=== PATIENT | male | born 1955 | race Two or more races ===

== ENCOUNTER 2021-08-15 16:47 | Inpatient (IN) | payer MEDICAID, OTHER ==
[~2021-08-15] VITALS: Ht 182.9 cm; Wt 76.2 kg
[2021-08-15 17:34] LABS: Eosinophils # (auto) 0 10 ^3/uL (0-0.8); Hematocrit 38.5 % (41.0-53.0); Lymphocytes # (auto) 0.6 10 ^3/uL (0.4-5.4); Mean Corpuscular Hgb Conc. 34.4 g/dL (32.0-36.0); Monocytes # (auto) 0.4 10 ^3/uL (0-1.3); Neutrophils # (auto) 4.2 10 ^3/uL (1.6-8.6); Nucleated Red Blood Cells % 0.1 %; White Blood Cell 5.3 10^3/uL (4.4-10.8)
[2021-08-15 17:35] LABS: Basophils # (auto) 0.1 10 ^3/uL (0-0.2); Eosinophils % (auto) 0.4 % (0.0-7.0); Hemoglobin 13.2 g/dL (13.5-17.5); Lymphocytes % (auto) 11.5 % (10.0-50.0); Mean Corpuscular Volume 101.7 fL (80.0-100.0); Monocytes % (auto) 7.8 % (0.0-12.0); Neutrophils % (auto) 79.3 % (37.0-80.0); Red Blood Cells 3.79 10^6/uL (4.5-5.90); Red Cell Distribution Width 13.5 % (11.8-14.3)
[2021-08-15 17:49] LABS: INR 1.1 (0.9-1.15); Partial Thromboplastin Time 24.8 sec (23.6-33.0)
[2021-08-15 17:52] LABS: Albumin 3.6 g/dL (3.4-5.0); Anion Gap 15 (5-15); Blood Urea Nitrogen 23 mg/dL (7-18); Calcium 8.7 mg/dL (8.5-10.1); Carbon Dioxide 21 mmol/L (21-32); Chloride 98 mmol/L (98-107); Magnesium 2.1 mg/dL (1.6-2.6); Sodium 134 mmol/L (136-145)
[2021-08-15 17:58] LABS: Alanine Aminotransferase 38 U/L (16-61); Alkaline Phosphatase 123 U/L (45-117); Aspartate Aminotransferase 53 U/L (15-37); BUN/Creatinine Ratio 17.8; Bilirubin, Total 0.8 mg/dL (0.2-1.0); GFR African American 72 mL/min; GFR Non-African American 60 mL/min; Total Protein 7.4 g/dL (6.4-8.2)
[2021-08-15] MEDS ORDERED: AMIODARONE HCL 150 MG in D5W 5% 100 ML IV ONE (18:00)
[2021-08-15] MEDS ORDERED: AMIODARONE 450mg/250ml AE 250 ML IV SCH (18:00)
[2021-08-15 18:30] LABS: Potassium 2.8 mmol/L (3.5-5.1)
[2021-08-15 18:31] LABS: Glucose 472 mg/dL (74-106)
[2021-08-15 19:32] LABS: Urine Bacteria FEW /hpf (None Seen); Urine Blood Negative /uL (Negative); Urine Hyaline Cast FEW /lpf (0 - 2); Urine Specific Gravity 1.028 (1.001-1.035); Urine WBC 2 /hpf (0 - 3)
[2021-08-15] MEDS ORDERED: POTASSIUM EFFERVESENT TAB 25 MEQ PO ONE (19:45)
[2021-08-15] MEDS ORDERED: NITROGLYCERIN 0.4 MG SL TAB SL PRN (19:45)
[2021-08-15] MEDS ORDERED: methylPREDNISolone SOD SUCC 125 MG/2 ML VL IV ONE (19:45)
[2021-08-15] MEDS ORDERED: MAGNESIUM SULFATE 1GM/100ML 100 ML IV ONE (19:45)
[2021-08-15] MEDS ORDERED: HYDROcodone-ACET 5/325MG TAB PO PRN (19:45)
[2021-08-15] MEDS ORDERED: MORPHINE SULFATE INJECTION 2 MG/ML SYRG IV PRN ×2 (19:45)
[2021-08-15] MEDS ORDERED: DEXTROSE (50%) 50ML SYRG IV PRN (19:45)
[2021-08-15] MEDS ORDERED: ONDANSETRON HCL 4 MG/2 ML VIAL IV PRN (19:45)
[2021-08-15] MEDS ORDERED: InsuLIN REG 1unit/0.01ml Soln (100units/ml) IV ONE (19:45)
[2021-08-15 20:22] LABS: Alcohol, Urine < 3.0 mg/dL (0-10); Amphetamine Screen, Urine NEGATIVE (NEGATIVE); Barbiturate Scree,Urine NEGATIVE (NEGATIVE); Benzodiazephine Screen, Urine NEGATIVE (NEGATIVE); Cannabinoid Screen, Urine NEGATIVE (NEGATIVE); Cocaine Screen, Urine NEGATIVE (NEGATIVE); Opiate Scree,Urine NEGATIVE (NEGATIVE); Phencyclidine Screen, Urine NEGATIVE (NEGATIVE)
[2021-08-15 20:35] LABS: CRP High Sensitivity 1.22 mg/dL (< 0.3)
[2021-08-15] MEDS ORDERED: InsuLIN REG 1unit/0.01ml Soln (100units/ml) SC SCH (22:00)
[2021-08-15] MEDS: DOCUSATE SOD 100 MG CAP PO SCH (22:38)
[2021-08-15] MEDS: ATORVASTATIN 20 MG TAB PO SCH (22:38)
[2021-08-15] MEDS: ACCU-CHEK COMFORT CURVE STRIP VI SCH (22:38)
[2021-08-15] MEDS: dilTIAZem HCL 60 MG TAB PO SCH (22:38)
[2021-08-16] MEDS: IPRATROPIUM BROM 0.5 MG/2.5ML INH SOL NEB SCH ×4 (00:30→18:43)
[2021-08-16] MEDS: LEVALBUTEROL HCL 1.25 MG/3 ML NEB NEB SCH ×4 (00:30→18:43)
[2021-08-16 03:18] LABS: Basophils # (auto) 0 10 ^3/uL (0-0.2); Eosinophils # (auto) 0 10 ^3/uL (0-0.8); Hemoglobin 13.7 g/dL (13.5-17.5); Monocytes # (auto) 0.2 10 ^3/uL (0-1.3); White Blood Cell 7.5 10^3/uL (4.4-10.8)
[2021-08-16 03:20] LABS: Basophils % (auto) 0.3 % (0.0-2.0); Lymphocytes # (auto) 0.5 10 ^3/uL (0.4-5.4); Lymphocytes % (auto) 7.1 % (10.0-50.0); Mean Corpuscular Hemoglobin 34.6 pg (28.0-32.0); Mean Corpuscular Hgb Conc. 34.2 g/dL (32.0-36.0); Mean Corpuscular Volume 101.1 fL (80.0-100.0); Monocytes % (auto) 2.3 % (0.0-12.0); Neutrophils # (auto) 6.8 10 ^3/uL (1.6-8.6); Neutrophils % (auto) 90.3 % (37.0-80.0); Red Blood Cells 3.95 10^6/uL (4.5-5.90); Red Cell Distribution Width 13.3 % (11.8-14.3)
[2021-08-16 03:36] LABS: INR 1.1 (0.9-1.15); Partial Thromboplastin Time 24.4 sec (23.6-33.0)
[2021-08-16 03:40] LABS: Calcium 8.8 mg/dL (8.5-10.1); Potassium 3.3 mmol/L (3.5-5.1)
[2021-08-16] MEDS: dilTIAZem HCL 60 MG TAB PO SCH ×3 (06:41→23:10)
[2021-08-16] MEDS: InsuLIN REG 1unit/0.01ml Soln (100units/ml) SC SCH ×4 (07:00→17:47)
[2021-08-16] MEDS: ACCU-CHEK COMFORT CURVE STRIP VI SCH ×4 (07:00→17:22)
[2021-08-16] MEDS: ASPirin-EC 81 mg tab PO SCH (09:52)
[2021-08-16] MEDS: LISINOPRIL 10 MG TAB PO SCH (09:52)
[2021-08-16] MEDS: THIAMINE HCL 100 MG TAB PO SCH (09:52)
[2021-08-16] MEDS: DOCUSATE SOD 100 MG CAP PO SCH ×2 (09:52→23:09)
[2021-08-16] MEDS: MULTIPLE VITAMIN TAB PO SCH (09:52)
[2021-08-16 09:58] VITALS: BP 110/64
[2021-08-16] MEDS: AMIODARONE 450mg/250ml AE 250 ML IV SCH (11:45)
[2021-08-16] MEDS ORDERED: methylPREDNISolone SOD SUCC 40 MG/ML VL IV ONE (13:15)
[2021-08-16] MEDS ORDERED: InsuLIN REG 1unit/0.01ml Soln (100units/ml) IV ONE (13:45)
[2021-08-16 15:19] VITALS: BP 111/64
[2021-08-16 16:58] VITALS: BP 111/64
[2021-08-16] MEDS ORDERED: DEXTROSE (50%) 50ML SYRG IV PRN (17:15)
[2021-08-16] MEDS: ACETAMINOPHEN 500 MG TAB PO PRN (19:55)
[2021-08-16 22:00] VITALS: BP 119/71
[2021-08-16] MEDS: INSULIN LANTUS (GLARGINE) 1 /0.01ml (100units/ml) SC SCH (22:22)
[2021-08-16] MEDS: ATORVASTATIN 20 MG TAB PO SCH (23:09)
[2021-08-16] MEDS: APIXABAN 5 MG TAB PO SCH (23:09)
[2021-08-17] MEDS: InsuLIN REG 1unit/0.01ml Soln (100units/ml) SC SCH ×4 (00:02→18:28)
[2021-08-17] MEDS: LEVALBUTEROL HCL 1.25 MG/3 ML NEB NEB SCH ×4 (00:06→18:18)
[2021-08-17] MEDS: ACCU-CHEK COMFORT CURVE STRIP VI SCH ×4 (00:06→18:27)
[2021-08-17] MEDS: IPRATROPIUM BROM 0.5 MG/2.5ML INH SOL NEB SCH ×4 (00:06→18:18)
[2021-08-17] MEDS: AMIODARONE 450mg/250ml AE 250 ML IV SCH (03:30)
[2021-08-17 05:00] VITALS: BP 96/60
[2021-08-17] MEDS: dilTIAZem HCL 60 MG TAB PO SCH ×2 (05:35→13:40)
[2021-08-17 09:23] VITALS: BP 107/71
[2021-08-17] MEDS ORDERED: methylPREDNISolone SOD SUCC 40 MG/ML VL IV SCH (10:00)
[2021-08-17] MEDS: THIAMINE HCL 100 MG TAB PO SCH (10:11)
[2021-08-17] MEDS: APIXABAN 5 MG TAB PO SCH (10:11)
[2021-08-17] MEDS: DOCUSATE SOD 100 MG CAP PO SCH ×2 (10:11→22:10)
[2021-08-17] MEDS: MULTIPLE VITAMIN TAB PO SCH (10:11)
[2021-08-17] MEDS: ASPirin-EC 81 mg tab PO SCH (10:11)
[2021-08-17] MEDS: LISINOPRIL 10 MG TAB PO SCH (10:12)
[2021-08-17] MEDS ORDERED: chlordiazePOXIDE HCL 25 MG CAP PO PRN (11:45)
[2021-08-17] MEDS ORDERED: LORazepam 2MG/ML-1ML VIAL IV PRN ×2 (11:45→12:15)
[2021-08-17] MEDS ORDERED: POTASSIUM EFFERVESENT TAB 25 MEQ PO ONE (11:45)
[2021-08-17 12:28] VITALS: BP 133/71
[2021-08-17] MEDS ORDERED: AMIODARONE HCL 200 MG TAB PO ONE (13:15)
[2021-08-17] MEDS ORDERED: IOHEXOL 350 MG/ML 100ML IJ ONE (13:36)
[2021-08-17 14:09] LABS: Potassium 3.8 mmol/L (3.5-5.1)
[2021-08-17] MEDS ORDERED: POTASSIUM CHL 20 Meq TABLET PO ONE (14:45)
[2021-08-17 16:49] VITALS: BP 118/63
[2021-08-17] MEDS: ACETAMINOPHEN 500 MG TAB PO PRN (22:07)
[2021-08-17] MEDS: ATORVASTATIN 20 MG TAB PO SCH (22:08)
[2021-08-17] MEDS: METOPROLOL TARTRATE 25 MG TAB PO SCH (22:09)
[2021-08-17] MEDS: APIXABAN 2.5 MG TAB PO SCH (22:09)
[2021-08-17] MEDS: AMIODARONE HCL 200 MG TAB PO SCH (22:09)
[2021-08-17] MEDS: INSULIN LANTUS (GLARGINE) 1 /0.01ml (100units/ml) SC SCH (22:12)
[2021-08-18] MEDS: LEVALBUTEROL HCL 1.25 MG/3 ML NEB NEB SCH ×4 (00:15→18:55)
[2021-08-18] MEDS: IPRATROPIUM BROM 0.5 MG/2.5ML INH SOL NEB SCH ×4 (00:15→18:55)
[2021-08-18] MEDS: InsuLIN REG 1unit/0.01ml Soln (100units/ml) SC SCH ×4 (00:45→17:33)
[2021-08-18] MEDS: ACCU-CHEK COMFORT CURVE STRIP VI SCH ×4 (00:47→17:28)
[2021-08-18 06:00] VITALS: BP 131/87
[2021-08-18 08:00] VITALS: BP 120/70
[2021-08-18 09:00] VITALS: BP 138/75
[2021-08-18] MEDS ORDERED: ADENOSINE 64 MG in GIVE UN-DILUTED 0 ML IV ONE (09:00)
[2021-08-18] MEDS: THIAMINE HCL 100 MG TAB PO SCH (12:34)
[2021-08-18] MEDS: DOCUSATE SOD 100 MG CAP PO SCH ×2 (12:34→21:19)
[2021-08-18] MEDS: METOPROLOL TARTRATE 25 MG TAB PO SCH ×2 (12:35→21:17)
[2021-08-18] MEDS: AMIODARONE HCL 200 MG TAB PO SCH ×2 (12:35→21:16)
[2021-08-18] MEDS: MULTIPLE VITAMIN TAB PO SCH (12:35)
[2021-08-18] MEDS: APIXABAN 2.5 MG TAB PO SCH (12:35)
[2021-08-18 13:00] VITALS: BP 141/74
[2021-08-18] MEDS ORDERED: LISINOPRIL 10 MG TAB PO ONE (14:15)
[2021-08-18] MEDS ORDERED: AMIO200T33 PO (14:32)
[2021-08-18] MEDS ORDERED: METO25TA93 PO (14:32)
[2021-08-18] MEDS ORDERED: INSUINJ37 SC (14:33)
[2021-08-18] MEDS ORDERED: LISI-716 PO (14:33)
[2021-08-18] MEDS ORDERED: ATO40T PO (14:34)
[2021-08-18] MEDS ORDERED: APIX5TAB PO (14:35)
[2021-08-18] MEDS ORDERED: THIA100T10 PO (14:35)
[2021-08-18] MEDS ORDERED: ALBUAER3 IN (14:37)
[2021-08-18 17:00] VITALS: BP 134/91
[2021-08-18] MEDS: ATORVASTATIN 20 MG TAB PO SCH (21:16)
[2021-08-18] MEDS: INSULIN LANTUS (GLARGINE) 1 /0.01ml (100units/ml) SC SCH (21:19)
[2021-08-18] MEDS: APIXABAN 5 MG TAB PO SCH (21:20)
[2021-08-18 22:00] VITALS: BP 148/97
[2021-08-19] MEDS: InsuLIN REG 1unit/0.01ml Soln (100units/ml) SC SCH ×3 (00:49→11:28)
[2021-08-19] MEDS: ACCU-CHEK COMFORT CURVE STRIP VI SCH ×3 (00:49→11:22)
[2021-08-19 06:02] VITALS: BP 140/80
[2021-08-19] MEDS: IPRATROPIUM BROM 0.5 MG/2.5ML INH SOL NEB SCH ×3 (06:04→11:48)
[2021-08-19] MEDS: LEVALBUTEROL HCL 1.25 MG/3 ML NEB NEB SCH ×3 (06:04→11:48)
[2021-08-19 08:00] VITALS: BP 123/74
[2021-08-19 09:00] VITALS: BP 119/70
[2021-08-19] MEDS: THIAMINE HCL 100 MG TAB PO SCH (09:34)
[2021-08-19] MEDS: DOCUSATE SOD 100 MG CAP PO SCH (09:34)
[2021-08-19] MEDS: APIXABAN 5 MG TAB PO SCH (09:35)
[2021-08-19] MEDS: AMIODARONE HCL 200 MG TAB PO SCH (09:35)
[2021-08-19] MEDS: MULTIPLE VITAMIN TAB PO SCH (09:36)
[2021-08-19] MEDS: METOPROLOL TARTRATE 25 MG TAB PO SCH (09:36)
[2021-08-19] MEDS ORDERED: LISINOPRIL 10 MG TAB PO SCH (10:00)
[2021-08-19 10:44] VITALS: BP 119/70
== END 2021-08-19 12:30 | disposition home or self-care (01) | DRG 201 ==
LOC: EDBD 16:47 → ER 16:47 → TELE 19:33 → TELE-WESTW 08-16 15:19
PROVIDERS: ADMIT Nurse Practitioner Acute Care; ATTEND Internal Medicine
DX: I48.91 Unspecified atrial fibrillation (principal); N17.9 Acute kidney failure, unspecified; D69.6 Thrombocytopenia, unspecified; Z20.822 Contact with and (suspected) exposure to COVID-19; I10 Essential (primary) hypertension; J45.909 Unspecified asthma, uncomplicated; E87.6 Hypokalemia; E11.65 Type 2 diabetes mellitus with hyperglycemia; E78.5 Hyperlipidemia, unspecified; J44.9 Chronic obstructive pulmonary disease, unspecified; E78.1 Pure hyperglyceridemia; F10.129 Alcohol abuse with intoxication, unspecified; Y90.9 Presence of alcohol in blood, level not specified; Z79.4 Long term (current) use of insulin; Z91.14 Patient's other noncompliance with medication regimen; Z72.0 Tobacco use; Z71.6 Tobacco abuse counseling
CPT/HCPCS: 36415; 71045; 71275; 78452; 80048; 80053; 80061; 80307; 81001; 82962; 83036; 83735; 84132; 84443; 84484; 85025; 85379; 85610; 85730; 86141; 87081; 87426; 93005; 93017; 93306; 93886; 94640; 96365; 96366; 96367; 96372; 96375; 96376; 99291; G0378; J0153; J1815; J2405